=== PATIENT | male | born 1945 | race Caucasian/White ===

== ENCOUNTER → 2017-06-21 | Outpatient (CLI) | payer OTHER ==
--- NOTE | 2017-06-22 05:38 | PAP/PSG TECHNICIAN REPORT ---
[facility] Laboratory Sample Carrier Polysomnogram Report Study name: None Report date: 06/22/2017 Study date: 06/21/2017 Referring Physician: DR. FABBY QUINTERO Name: CARLINE ROLDAN Interpreting Physician: Carline Graham M.D. Date of : 1945 Laboratory Sample Carrier: Laura Malone RPSGT. Sex: Male Age: 71 StudyType: PSG Weight: 165 lbs Height: 71 years, Height 5' 6" Neck Circum:16inches BMI: 26.63 Medications: Amlodipine Besylate 10mg, Lisinopril 10mg, ASA 81mg, Loratidine 10mg, Fish Oil 1000mg, Centrum Silver Patient History Study started on room air with no ETCO2 monitoring in room #8. 71 yr old male here tonight for a diagnostic psg. He complains of lack of energy, snoring and witnessed apnea. His ESS=6/24. Neck circ=16inches. Parameters Monitored NPSG: E1-M2, E2-M1, Fp1-M2, Fp2-M1, F3-M2, F4-M2, F4-M1, C3-M2, C4-M2, C4-M1, O1-M2, O2-M2, O2-M1, T3-M2, T4-M1, P3-M2, P4-M1, CHIN1, CHIN2, HR, EKG, Legs, PFLOW, SNOR, FLOW, CFLOW, Tidal Volume, THOR, ABDO, SpO2, PLTH, CPRESS, ETCO2 Wave, ETCO2, pH Sleep Architecture Sleep Stages Time at Lights Off 9:52:50 PM STAGES Time (min.) TST (%) Time at Lights On 5:32:50 AM Wake 278.0 -- Total Recording Time (TRT) 460.00 min. N1 27.0 15 Total Sleep Period (TSP) 382.0 min. N2 123.0 68 Total Sleep Time (TST) 182.0min. N3 0.0 0 Awake Time 278.0 min. REM 32.0 18 Wake after Sleep Onset 200.0 min. Sleep Efficiency (SE) 40 % Sleep Onset Latency ([place]ER[place]) 78.0 min. Number of Stage 1 Shifts None Awakenings 17 Stage Changes 88 Number of REM periods 7 REM 32.0 18 REM Latency 219.5 min. NREM 150.0 82 Body Position Analysis Supine Right Left Side Prone Vertical Total Sleep Time (min.) 172.1 12.6 87.7 100.30 24.5 0.0 Total Sleep Time (%) 36% 7% 48% 55 9% N/A% Total Sleep Time REM (min.) 2.5 0.0 29.5 None 0.0 0.0 Total Sleep Time NREM (min.) 62.7 12.6 58.2 None 16.5 0.0 Intermittent Wake (min.) 106.9 84.1 79.0 None 8.0 0.0 Total Sleep Period (%) 30% None None None None None Arousals Myoclonus (PLM) * Events Count Index Events Count Index Spontaneous 9 3 Events Awake (PLMW) 639 137.9 Respiratory 22 6.6 Events Asleep w/ Arousal (PLMA) 17 5.6 PLM 17 6 Events Asleep w/o Arousal (PLMS) 281 92.6 Snoring 2 1 Total Asleep 298 98.2 Total 50 16 Total 937 122 Respiratory Analysis * CA OA MA CH H RERA Total Count 0 7 1 0 28 0 36 Index 0.0 2.3 0.3 0 9.2 0 11.9 Mean Duration 0.0 39.7 33.8 0.00 31.9 0.0 33.5 Longest Duration 0.0 57.4 33.8 0.00 33.8 0.0 58.9 Respiratory Event Summary Total Supine ~Supine Right Left Prone REM NREM Apneas Count 8 8 0 0 0 0 0 8 Index 2.6 7 0 0.0 0.0 0 0 3 Hypopneas (4% Desat) Count 28 23 5 1 4 0 2 26 Index 9.2 21.2 3 4.7 2.7 0.0 3.8 10.4 Apneas & All Hypopneas Count 36 31 5 1 4 0 2 34 Index 11.9 29 3 5 3 0 3.8 13.6 Respiratory Events (Painter And Decorator Apprentice+All Hyp+RERA) Count 36 31 5 1 4 0 2 34 Index 11.9 29 3 4.7 2.7 0.0 3.8 13.6 Respiratory Related Arousal Count 22 31 0 0 0 0 1 19 Index 6.6 18 0 0 0 0 2 8 Snoring Analysis Supine Right Left Prone REM NREM Total Snore duration 3.7 min Snores count 59 16 9 65 8 141 149 Snore mean duration 1.5 Sec Snores index 54 76 6 236 15.0 56.4 49.1 TST with snoring (%) 2.0% Desaturation Event Summary: Minimum %SpO2 Event Count Mean/Min/Max Duration(sec.) Desaturation Index % Time In Bed > 90 90 31.3 / 7.0 / 60.0 12.2 98.7 86 - 90 0 N/A 0.0 1.2 81 - 85 0 N/A 0.0 0.1 76 - 80 0 N/A 0.0 0.0 71 - 75 0 N/A 0.0 0.0 66 - 70 0 N/A 0.0 0.0 61 - 65 0 N/A 0.0 0.0 56 - 60 0 N/A 0.0 0.0 51 - 55 0 N/A 0.0 0.0 < 50 0 N/A 0.0 0.0 Total REM NREM Awake <50% 0.0 min. 0.0 min. 0.0 min. 0.0 min. 51 - 60% 0.0 min. 0.0 min. 0.0 min. 0.0 min. 61 - 70% 0.0 min. 0.0 min. 0.0 min. 0.0 min. 71 - 80% 0.0 min. 0.0 min. 0.0 min. 0.0 min. 81 - 90% 5.9 min. 0.6 min. 3.9 min. 1.5 min. 91 - 100% 442.7 min. 31.4 min. 146.1 min. 265.1 min. Average 94 94 94 95 Minimum SpO2 82 87 87 82 Desaturation Event Index 11.7 3.8 15.2 10.8 # Desat. Events below 89% 8 1 6 1 Time(%) with Saturation below 89% 0.3 0.0 0.1 0.1 Time(min.) with Saturation below 89% 1.1 0.2 0.3 0.6 Time (mins) REM (mins) NREM (mins) % of TST SpO2 Below 90% 19 2 N17 1.1 SpO2 Below 88% 4 0 0 0 Heart Rate Analysis Min (bpm) Max (bpm) Average (bpm) Awake 43 141 58 NREM 42 69 48 REM 42 54 47 Overall 42 69 48 Supplemental O2 Values Minimum O2 level: None Value Start Time End Time Laboratory Sample Carrier Comments Mr. Roldan slept in the right, left, supine and prone positions. No cardiac arrhythmia noted. PLM's were noted. No bruxism noted. Snoring was noted and scored as a 2 on a scale of 1 through 5. (0=no snoring, 5=snoring loud enough to be heard through a closed door or down the sexton way) He awoke to use the restroom 1 time during the night. His legs were bothering him and he had to get out of bed and stretch. He stated that he slept worse than when at home. The final report will be interpreted and signed by a sleep physician. The completed physician report will then be placed in the patient medical record. Therapy (cm H2O) 0 TIB (min.) 460.0 TST (min.) 182.0 Sleep Onset (min.) 78.0 REM Onset From Sleep (min.) 219.5 Sleep Efficiency % 40 Wakefulness (%) 60 Wakefulness (min.) 278.0 NREM 1 (%) 15 NREM 1 (min.) 27.0 NREM 2 (%) 68 NREM 2 (min.) 123.0 NREM 3 (%) 0 NREM 3 (min.) 0.0 REM (%) 18 REM (min.) 32.0 # Arousals 50 Arousal Index 16 # Snore 149 Snore Index 49.1 AHI 11.9 AHI Supine 29 AHI Non-Supine 3 NREM AHI 13.6 REM AHI 3.8 RDI 11.9 # Obstructive Apnea 7 # Central Apnea 0 # Mixed Apnea 1 # Hypopneas 28 RERAs 0 Total Respiratory Events 52 Time Below SpO2 89% (min.) 0.5 Mean NREM SpO2 (%) 94 Mean REM SpO2 (%) 94 Mean Sleep SpO2 (%) 94 Min NREM SpO2 (%) 87 Min REM SpO2 (%) 87 Position Supine (min.) 172.1 Position Non-supine (min.) 116.8 LM Index Sleep 98.2 LM Index NREM 109.6 LM Index REM 45.0 Mean Heart Rate (bpm) 48 Min Heart Rate (bpm) 42
--- NOTE | 2017-06-23 07:03 | POLYSOMNOGRAPH REPORT ---
CLINICAL DATA: A 71-year-old male with BMI of 26.63, referred by Dr. Jos Rios with a history of lack of energy, snoring, and witnessed apnea at night. His [place] sleepiness score is 6/24. SLEEP ARCHITECTURE: Total sleep period was 382 minutes. Total sleep time was 182 minutes, divided between 150 minutes of non-REM sleep and 32 minutes of REM sleep. Sleep onset latency was delayed at 78 minutes. REM latency was delayed at 219.5 minutes. Sleep efficiency was severely reduced at 40%. Wake after sleep onset was markedly elevated at 200 minutes. Sleep consisted of stage N1 15%, stage N2 68%, and REM 18%. AROUSAL DATA: 50 arousals were recorded for an index of 16 per hour. PLM DATA: Severely elevated limb movements during sleep were noted. There were 298 limb movements during sleep noted for an index of 98.2 per hour with arousal index of 5.6 per hour. RESPIRATORY DATA: Mild sleep apnea was documented. The AHI was 11.9. There were 7 obstructive and 1 mixed apneic episode. The longest duration of apnea was 57.4 seconds. There were 28 hypopneic episodes. The longest duration of hypopnea was 33.8 seconds. OXIMETRY DATA: Very limited hypoxemia was seen. Oxygen jeremy was 87% during REM. Mean saturation was 94%. Time below 88% was 4 minutes. EKG: Heart rates ranged from 42-69 beats per minute. No arrhythmias were noted. BUCKLE STAPLER'S COMMENTS. The patient slept in the right, left, supine, and prone positions. Snoring was mild, rated 2 on a scale of 1-5. His legs were bothering him throughout the night. He had to get out of bed and stretch his legs. He had long periods of wakefulness throughout the night interspersed with short periods of sleep until the latter third of the night. IMPRESSION: 1. Mild sleep apnea/hypopnea with an AHI of 11.9 without significant nocturnal hypoxemia. 2. Frequent leg movements during sleep. RECOMMENDATIONS: The patient may benefit from a repeat sleep study with CPAP, use of auto CPAP, or use of an oral appliance. Clinical correlation is needed. [facility]
== END | disposition home or self-care (01) ==
LOC: C.NEUR 21:00
PROVIDERS: ATTEND Family Medicine
DX: G47.30 Sleep apnea, unspecified (principal); G47.61 Periodic limb movement disorder